=== PATIENT | female | born 1965 | race American Indian/Alaskan Native ===

== ENCOUNTER 2016-11-23 08:05 | Day surgery (SDC) | payer MEDICARE, MEDICAID ==
[2016-11-15 10:05] VITALS: BMI 25.7
[2016-11-23] MEDS ORDERED: ceFAZolin IV 1 gm in Dextrose 50 ML IVPB ONE (08:43)
[2016-11-23] MEDS ORDERED: Bupivacaine/Epi 0.25%-1:200,000 10 ml PF inj IJ ONE ×2 (08:44→09:25)
[2016-11-23] MEDS ORDERED: Propofol 10 mg/ml Inj (20 ML) ONE ×2 (09:12→10:08)
[2016-11-23] MEDS ORDERED: Midazolam 2 MG/2 ML VIAL ONE (09:12)
[2016-11-23] MEDS ORDERED: Lactated Ringer's 1,000 ML IV ONE (09:20)
[2016-11-23] MEDS ORDERED: Rocuronium 10 mg/ml (5 ml) ONE (09:52)
[2016-11-23] MEDS ORDERED: Neostigmine Methylsulfate 3mg/3ml Syringe IV ONE (09:52)
[2016-11-23] MEDS ORDERED: Succinylcholine Chloride 20 mg/ml Syr (5 ml) IV ONE (09:52)
[2016-11-23] MEDS ORDERED: HYDROmorphone 0.5 mg/0.5 ml ISec IVP PRN (10:03)
[2016-11-23] MEDS ORDERED: Oxycodone/Acetaminophen 5/325 mg Tab PO PRN (10:35)
--- NOTE | 2016-11-23 10:35 | PCM.SURG1 ---
Surgeon's Initial Post Op Note - Surgeon's Notes Surgeon: Dr. Gilbert Home Care Assistant: Dr. Galicia PGY-2 Type of Anesthesia: General Endo, Local Pre-Operative Diagnosis: Hemorrhoids Operative Findings: Internal and external hemorrhoids Post-Operative Diagnosis: Internal and external hemorrhoids Operation Performed: Hemorrhoidectomy Specimen/Specimens Removed: Left lateral and right anterior hemorrhoids Estimated Blood Loss: EBL {In ML}: 25 Blood Products Given: N/A Drains Used: No Drains Post-Op Condition: Good Date of Surgery/Procedure: 11/23/16 Time of Surgery/Procedure: 09:30
--- NOTE | 2016-11-23 11:02 | OP ---
PROCEDURE DATE: 11/23/2016 PREOPERATIVE DIAGNOSIS: Grade IV external and internal hemorrhoids. POSTOPERATIVE DIAGNOSIS: Right lateral grade IV external and internal prolapsed hemorrhoids and left lateral external hemorrhoid. PROCEDURE DONE: 1. Two column hemorrhoidectomy of the right lateral externo-internal hemorrhoids and left lateral external hemorrhoidectomy. 2. Examination under anesthesia SURGEON: Brian Gilbert MD TALENT DEVELOPMENT CONSULTANT: Michelle Galicia, PGY-2 resident. ANESTHESIA: General endotracheal tube anesthesia. ESTIMATED BLOOD LOSS: Around 10 mL. DRAINS: None. PATHOLOGY: Right lateral large hemorrhoid and left lateral small hemorrhoid were sent for pathology. COMPLICATIONS: None. INTRAOPERATIVE FINDINGS: The patient had a large right lateral and left anterior external hemorrhoids. INTRAOPERATIVE STEPS: This is a 51-year-old female who was diagnosed with prolapsed external and internal hemorrhoids and the patient was consented for the hemorrhoidectomy, brought to the OR. After induction of the anesthesia, the patient was placed in a prone jackknife position and the butt cheeks were apart and perineal area was prepped and draped. Examination under anesthesia was done. An elliptical incision was made surrounding the right lateral large hemorrhoid and the mucocutaneous incision was made and the hemorrhoid was dissected free from the underlying internal sphincter muscles and the pedicle was ligated x 2 and wound was closed with 2-0 Vicryl continuous suture. Now, the left anterior external hemorrhoid was also excised and wound was closed with 2-0 Vicryl and both hemorrhoids were sent separately. Hemostasis was achieved. The patient tolerated the procedure well. Count of instruments and gauze was correct. There was no apparent complication. The Surgicel packing was placed. The patient was extubated in OR, sent to the postanesthesia care unit in stable condition. Brian Gilbert MD cc: [id number] TT: 11/23/2016 11:01:51 tn MTDD
[2016-11-23 12:31] VITALS: TEMP 97.4; O2SAT 100
[2016-11-23 14:16] VITALS: BP 109/53; PULSE 77; RESP 15
== END 2016-11-23 14:30 | disposition home or self-care (01) ==
LOC: C.SDS 08:05
PROVIDERS: ATTEND Surgery Surgical Critical Care
DX: K64.8 Other hemorrhoids (principal)
CPT/HCPCS: 46255; 88304; J0690; J1170; J1885; J2001; J2250; J2405; J2704; J2710; J3010; J7120